=== PATIENT | male | born 1985 | race Caucasian/White ===

== ENCOUNTER → 2020-12-13 16:34 | Outpatient (CLI) | payer BC, SELFPAY ==
--- NOTE | ~2020-12-13 | MR_ITS ---
EXAMINATION: MR brain/brain stem wo con DATE: 12/13/2020 17:37 INDICATION: Altered mental status. TECHNIQUE: Magnetic resonance imaging (MRI) of the brain and brainstem was performed without intraven ous contrast. Sequences included sagittal, coronal, and axial T1-weighted FSE, axial diffusion-weight ed FS EPI, axial T2*-weighted GRE, axial T2-weighted FLAIR Propeller, and axial T2-weighted Propeller . Apparent diffusion coefficient (ADC) maps were created. COMPARISON: None. FINDINGS: The cerebellar tonsils extend 6 mm inferior to foramen magnum, consistent with Chiari I mal formation. There is no intracranial hemorrhage, acute infarction, or abnormal intracranial mass lesio n. The ventricles are normal in size. The maxillary sinuses are small and completely opacified. The o rbits are normal. The mastoid air cells are normal. IMPRESSION: 1. Chiari I malformation. Reviewed, dictated and finalized at location A. E COACH IMPRESSION: 1. Chiari I malformation.
== END ==
PROVIDERS: PCP Pediatrics; Visit Provider Pediatrics
DX: R41.82 Altered mental status, unspecified (principal); G93.5 Compression of brain
CPT/HCPCS: 70551

== ENCOUNTER 2022-08-26 08:50 | Outpatient (CLI) | payer BC, SELFPAY ==
--- NOTE | 2022-08-26 11:30 | NEURO_ITS ---
Impression: Patient with history of bilateral Carpal Tunnel Syndrome. # Normal nerve conduction study. # Normal EMG/needle exam. # Clinical correlation recommended. Nerve Conduction Studies Anti Sensory Summary Table Stim Site NR Peak (ms) P-T Amp (?V) Site1 Site2 Delta-P (ms) Dist (cm) Ko (m/s) Left Median Anti Sensory (2-3nd Digit) Wrist 3.3 56.3 Wrist 2-3nd Digit 3.3 14.0 42 Wrist 3.4 53.9 Wrist 2-3nd Digit 3.3 14.0 42 Right Median Anti Sensory (2-3nd Digit) Wrist 3.0 34.9 Wrist 2-3nd Digit 3.0 14.0 47 Wrist 3.2 46.9 Wrist 2-3nd Digit 3.0 14.0 47 Left Radial Anti Sensory (Base 1st Digit) Wrist 2.3 36.9 Wrist Base 1st Digit 2.3 0.0 Right Radial Anti Sensory (Base 1st Digit) Wrist 2.4 27.2 Wrist Base 1st Digit 2.4 0.0 Left Ulnar Anti Sensory (5th Digit) Wrist 3.0 41.7 Wrist 5th Digit 3.0 14.0 47 Right Ulnar Anti Sensory (5th Digit) Wrist 2.8 32.0 Wrist 5th Digit 2.8 14.0 50 Motor Summary Table Stim Site NR Onset (ms) O-P Amp (mV) Site1 Site2 Delta-0 (ms) Dist (cm) Ko (m/s) Left Median Motor (Abd Poll Brev) Wrist 3.0 4.5 Elbow Wrist 4.3 24.5 57 Elbow 7.3 3.7 Right Median Motor (Abd Poll Brev) Wrist 3.2 3.1 Elbow Wrist 4.8 26.0 54 Elbow 8.0 2.8 Left Ulnar Motor (Abd Dig Minimi) Wrist 2.7 9.1 A Elbow Wrist 5.3 30.0 57 A Elbow 8.0 8.2 B Elbow Wrist 4.0 23.0 58 B Elbow 6.7 8.2 Right Ulnar Motor (Abd Dig Minimi) Wrist 2.7 2.1 A Elbow Wrist 5.2 29.0 56 A Elbow 7.9 1.6 B Elbow Wrist 3.9 23.0 59 B Elbow 6.6 2.0 F Wave Studies NR F-Lat (ms) L-R F-Lat (ms) Left Median (Mrkrs) (Abd Poll Brev) 29.80 0.41 Right Median (Mrkrs) (Abd Poll Brev) 29.40 0.41 Left Ulnar (Mrkrs) (Abd Dig Min) 29.69 1.21 Right Ulnar (Mrkrs) (Abd Dig Min) 30.90 1.21 EMG Side Muscle Nerve Root Ins Act Fibs Amp Dur Recrt Comment Right 1stDorInt Ulnar C8-T1 Nml Nml Nml Nml Nml Right Ext Indicis Radial (Post Int) C7-8 Nml Nml Nml Nml Nml Right Ext Digitorum Radial (Post Int) C7-8 Nml Nml Nml Nml Nml Right BrachioRad Radial C5-6 Nml Nml Nml Nml Nml Right PronatorTeres Median C6-7 Nml Nml Nml Nml Nml Right Abd Poll Brev Median C8-T1 Nml Nml Nml Nml Nml Left 1stDorInt Ulnar C8-T1 Nml Nml Nml Nml Nml Left Ext Indicis Radial (Post Int) C7-8 Nml Nml Nml Nml Nml Left Ext Digitorum Radial (Post Int) C7-8 Nml Nml Nml Nml Nml Left BrachioRad Radial C5-6 Nml Nml Nml Nml Nml Left PronatorTeres Median C6-7 Nml Nml Nml Nml Nml Left Abd Poll Brev Median C8-T1 Nml Nml Nml Nml Nml MTDD
== END 2022-08-26 08:51 | disposition home or self-care (01) ==
PROVIDERS: PCP Pediatrics; Visit Provider Nurse Practitioner Family
DX: I49.8 Other specified cardiac arrhythmias (principal); B94.8 Sequelae of other specified infectious and parasitic diseases; R20.0 Anesthesia of skin; R29.898 Other symptoms and signs involving the musculoskeletal system; R53.83 Other fatigue
CPT/HCPCS: 95886; 95911